=== PATIENT | female | born 1940 | race Caucasian/White ===

== ENCOUNTER 2018-05-18 12:06 | Day surgery (SDC) | payer MEDICARE, BC ==
[~2018-05-18] VITALS: Ht 165.1 cm; Wt 89.1 kg
--- NOTE | ~2018-05-18 | OP ---
PATIENT NAME: GARRISON CASTILLO MEDICAL RECORD: [id number] :44 LOCATION:[facility] ADMISSION DATE: SURGEON: DAVID GOODWIN DO DATE OF OPERATION: 05/18/2018 PROCEDURE: Colonoscopy with polypectomy and biopsies. INDICATIONS FOR PROCEDURE: Change in bowel habits, generalized abdominal tenderness, diarrhea and constipation. SCOPE: Olympus video pediatric colonoscope. MEDICATIONS: Propofol 310 mg IV per anesthesia. WITHDRAWAL TIME: 11 minutes. ESTIMATED BLOOD LOSS: Minimal. COMPLICATIONS: None. FINDINGS: Informed consent was given. The patient was made comfortable with the above medication. After reaching an adequate level of sedation by slow IV push, the patient was placed on her left side. A digital rectal examination was performed and was normal. The endoscope was then advanced under direct visualization through the rectum to the cecum, confirmed by the presence of the appendiceal orifice and ileocecal valve. There were 2 polyps visualized on today's examination. The first was located in the cecum. It was a benign appearing sessile polyp, which measured approximately 2 mm in diameter. It was removed using hot forceps. In the distal ascending colon, a second polyp was visualized. It was benign appearing sessile polyp, which measured approximately 4 mm in diameter. It was removed using hot forceps. There was evidence of mild diverticulosis involving the sigmoid colon. Retroflexion was performed in the rectum with a normal appearing rectal wall. The endoscope was withdrawn from the patient. The patient tolerated the procedure well and there were no complications. IMPRESSION: 1. Two polyps as described above, removed using hot forceps. 2. Sigmoid colon diverticulosis without diverticulitis. 3. Otherwise, normal colonoscopy. Multiple random cold forceps biopsies were taken to submit for histopathology and to rule out the presence of microscopic colitis. PLAN AND RECOMMENDATIONS: 1. Discharge home when recovery parameters are met. 2. Follow up biopsy specimen results. 3. High fiber diet. 4. Supplement diet with Metamucil 1 tablespoon daily or an equivalent, psyllium husk fiber. 5. Consider adding 1/4 dose of MiraLax as needed for constipation. 6. No further colonoscopies are necessary based on the patient's age, unless symptoms warrant evaluation. TRANSINT:[id number] Voice Confirmation ID: [id number] DOCUMENT ID: [id number] OPERATIVE REPORT [id number] GARRISON CASTILLO DAVID GOODWIN DO at 0800 CC: [id number] DICTATION DATE: 05/18/18 1514 MANAGER RISK: 05/19/18 0033 [facility] 05/18/18 [id number] [place] [address]
[2018-05-18 12:41] LABS: BASOPHILS 0.2 % (0-2); HEMATOCRIT 46.1 % (36.0-48.0); IMMATURE GRANULOCYTES 0.4 % (0-5); MCH 32.1 pg (26.0-34.0); MCHC 32.5 g/dL (31.0-37.0); MCV 98.5 fL (80.0-100.0); MEAN PLATELET VOLUME 8.9 fL (7.4-10.4); MONOCYTES 8.5 % (2-11); NEUTROPHILS 60.9 % (40-80); PLATELET COUNT 257 10x3/uL (130-400); RBC 4.68 10x6/uL (4.00-5.40); RDW 13.1 % (11.5-14.5); WBC 8.4 10x3/uL (4.8-10.8)
[2018-05-18 12:49] LABS: CALC OSMOLALITY 281 mosm/kg (275-300); CALCIUM 9.4 mg/dL (8.5-10.1); CARBON DIOXIDE 29.9 mmol/L (21.0-32.0); CHLORIDE - SERUM 103 mmol/L (98-107); CREATININE - SERUM 0.7 mg/dL (0.6-1.3); GLUCOSE 105 mg/dL (74-106); SODIUM 142 mmol/L (136-145); UREA NITROGEN 9 mg/dL (7-18); eGFR NON AFRICAN AMERICAN 86 mL/min (90-120)
[2018-05-18 12:50] LABS: POTASSIUM - SERUM 4.7 mmol/L (3.5-5.1)
[2018-05-18 13:08] LABS: APTT 24.6 SECONDS (22.8-39.4)
[2018-05-18 13:11] LABS: INR 1.06 (0.85-1.17); PROTIME 13.3 SECONDS (11.6-15.0)
[2018-05-18] MEDS ORDERED: PLAVIX75 MG PO (13:11)
[2018-05-18] MEDS ORDERED: CROMOLYN S20 MG/2 ML NEB ×2 (13:12→13:22)
[2018-05-18] MEDS ORDERED: HYDROCODON-ACE1 EAC7 PO (13:13)
[2018-05-18] MEDS ORDERED: BAYER CHEWABLE81 MG PO (13:16)
[2018-05-18] MEDS ORDERED: RABEPRAZOLE (13:18)
[2018-05-18] MEDS ORDERED: FEXOFENADINE HC60 MG PO (13:19)
[2018-05-18] MEDS ORDERED: VITAMIN C250 MG PO (13:19)
[2018-05-18] MEDS ORDERED: PROBIOTIC250 MG PO (13:19)
[2018-05-18] MEDS ORDERED: TUMS X-STR300 MG PO (13:20)
[2018-05-18] MEDS ORDERED: VITAMIN D3400 UNI1 PO (13:20)
[2018-05-18] MEDS ORDERED: NUTRISOURCE FI1 EACH PO (13:21)
[2018-05-18] MEDS ORDERED: FLINTSTONES WIT18 MG PO (13:21)
[2018-05-18] MEDS ORDERED: PROBENECID500 MG PO (13:22)
[2018-05-18 13:38] VITALS: Ht 165.1 cm; Wt 89.1 kg
== END 2018-05-18 16:35 | disposition home or self-care (01) ==
LOC: D.OPS 12:06 → EDBD 12:06 → D.OPS 13:45
PROVIDERS: Anesthesiology
DX: D12.2 Benign neoplasm of ascending colon (principal); D12.0 Benign neoplasm of cecum; K57.30 Diverticulosis of large intestine without perforation or abscess without bleeding; Z01.812 Encounter for preprocedural laboratory examination

== ENCOUNTER 2018-05-22 13:11 | Emergency (ER) | payer MEDICARE, BC ==
[~2018-05-22] VITALS: Ht 165.1 cm; Wt 89.1 kg
[~2018-05-22 13:11] MED LIST: BAYER CHEWABLE81 MG PO; CROMOLYN S20 MG/2 ML NEB; FEXOFENADINE HC60 MG PO; FLINTSTONES WIT18 MG PO; HYDROCODON-ACE1 EAC7 PO; NUTRISOURCE FI1 EACH PO; PLAVIX75 MG PO; PROBENECID500 MG PO; PROBIOTIC250 MG PO; RABEPRAZOLE; TUMS X-STR300 MG PO; VITAMIN C250 MG PO; VITAMIN D3400 UNI1 PO
[2018-05-22 13:19] VITALS: Ht 165.1 cm; Wt 89.1 kg
[2018-05-22 13:36] VITALS: BP 188/081
[2018-05-22 14:35] LABS: BASOPHILS 0.3 % (0-2); HEMATOCRIT 44.7 % (36.0-48.0); HEMOGLOBIN 14.4 g/dL (12-16); IMMATURE GRANULOCYTES 0.3 % (0-5); LYMPHOCYTES 37.2 % (15-50); MCH 31.7 pg (26.0-34.0); MCHC 32.2 g/dL (31.0-37.0); MCV 98.5 fL (80.0-100.0); MEAN PLATELET VOLUME 8.8 fL (7.4-10.4); MONOCYTES 8.6 % (2-11); NEUTROPHILS 51.6 % (40-80); PLATELET COUNT 268 10x3/uL (130-400); RBC 4.54 10x6/uL (4.00-5.40); RDW 13.1 % (11.5-14.5); WBC 7.3 10x3/uL (4.8-10.8)
[2018-05-22 14:54] LABS: ALBUMIN 3.7 g/dL (3.4-5.0); ALKALINE PHOSPHATASE 71 U/L (46-116); ALT (SGPT) 25 U/L (10-68); BILIRUBIN - TOTAL 0.34 mg/dL (0.2-1.3); CALC OSMOLALITY 277 mosm/kg (275-300); CALCIUM 9.3 mg/dL (8.5-10.1); CHLORIDE - SERUM 104 mmol/L (98-107); CREATININE - SERUM 0.7 mg/dL (0.6-1.3); GLUCOSE 95 mg/dL (74-106); POTASSIUM - SERUM 3.8 mmol/L (3.5-5.1); PROTEIN - SERUM 7.6 g/dL (6.4-8.2); SODIUM 140 mmol/L (136-145); UREA NITROGEN 10 mg/dL (7-18); eGFR NON AFRICAN AMERICAN 86 mL/min (90-120)
[2018-05-22 15:06] LABS: APPEARANCE CLEAR (CLEAR); BILIRUBIN NEGATIVE (NEGATIVE); COLOR YELLOW (YELLOW); GLUCOSE NEGATIVE (NEGATIVE); KETONE NEGATIVE (NEGATIVE); NITRITE NEGATIVE (NEGATIVE); PROTEIN NEGATIVE (NEGATIVE); UROBILINOGEN NORMAL (NORMAL)
[2018-05-22 17:54] LABS: T4 THYROXIN - FREE 1.11 ng/dL (0.76-1.46); THYROID STIMULATING HORMONE 0.63 uIU/mL (0.36-3.74)
== END 2018-05-22 17:31 | disposition home or self-care (01) ==
LOC: EDBD 13:11 → D.ER 13:11
PROVIDERS: Emergency Medicine
DX: R68.83 Chills (without fever) (principal); R14.0 Abdominal distension (gaseous)

== ENCOUNTER 2018-06-01 10:06 | Day surgery (SDC) | payer MEDICARE, BC ==
[~2018-06-01] VITALS: Ht 165.1 cm; Wt 89.1 kg
--- NOTE | ~2018-06-01 | OP ---
PATIENT NAME: GARRISON CASTILLO MEDICAL RECORD: [id number] :44 LOCATION:[facility] ADMISSION DATE: SURGEON: DAVID GOODWIN DO DATE OF OPERATION: 06/01/2018 PROCEDURE: EGD with biopsies. INDICATIONS FOR PROCEDURE: GERD and dysphagia. SCOPE: Olympus video gastroscope. MEDICATIONS: Propofol 160 mg IV per anesthesia. ESTIMATED BLOOD LOSS: Minimal. COMPLICATIONS: None. FINDINGS: Informed consent was given. The patient was made comfortable with the above medication. After reaching an adequate level of sedation by slow IV push, the patient was placed on her left side. The endoscope was advanced under direct visualization through the mouth to the second portion of the duodenum. The upper, middle, and lower thirds of the esophagus appeared normal without strictures, ulcerations, rings, or other abnormalities. At the GE junction, there was mild evidence of LA class A reflux-induced esophagitis. Cold forcep biopsies were taken from the GE junction. The endoscope was advanced beyond the GE junction into the stomach and retroflexed to view the cardia, where a small sliding hiatal hernia was present. Throughout the fundus and body of the stomach, there were multiple benign-appearing fundic gland polyps, which ranged in size from 3 mm to a centimeter. A cold forcep biopsy was taken of one of the larger polyps to submit for histopathology. The endoscope was advanced beyond the body of the stomach into the antrum and prepyloric region, which appeared normal. Random cold forcep biopsies were taken to submit for histopathology to rule out the presence of H. pylori. The endoscope was advanced beyond the pylorus into the duodenum. The duodenum appeared normal down to the second portion. The endoscope was then withdrawn from the patient. The patient tolerated the procedure well and there were no complications. IMPRESSION: 1. LA class A reflux-induced esophagitis. 2. Small sliding hiatal hernia. 3. Multiple benign appearing fundic gland polyps. Biopsies pending. PLAN AND RECOMMENDATIONS: 1. Discharge home when recovery parameters are met. 2. Follow up biopsy specimen results. 3. GERD diet and reflux precautions. 4. Continue current medications. 5. We will discuss further workup of the GERD and dysphagia with the patient. Regarding medications, I am hesitant to change her medication from her Aciphex due to her extensive list of allergies. I would consider a barium esophagram regarding her ongoing dysphagia. This may also lend some support of reflux in relation to her small hiatal hernia. 6. Could consider surgical referral for antireflux procedure if severe reflux is still occurring while on therapy. OPERATIVE REPORT [id number] GARRISON CASTILLO ANN TRANSINT:[id number] Voice Confirmation ID: [id number] DOCUMENT ID: [id number] DAVID GOODWIN DO at 1554 CC: [id number] DICTATION DATE: 06/01/18 1334 [employer] MECHANIC: 06/01/18 1511 [facility] 06/01/18 [facility] [address] [place] [address]
[2018-06-01 10:43] LABS: APTT 27.3 SECONDS (22.8-39.4); PROTIME 12.7 SECONDS (11.6-15.0)
[2018-06-01 10:44] LABS: ANION GAP 12.5 mmol/L (8-16); CALCIUM 9.7 mg/dL (8.5-10.1); CARBON DIOXIDE 31.8 mmol/L (21.0-32.0); CREATININE - SERUM 0.9 mg/dL (0.6-1.3); POTASSIUM - SERUM 4.3 mmol/L (3.5-5.1)
[2018-06-01 11:01] LABS: HEMATOCRIT 45.1 % (36.0-48.0); HEMOGLOBIN 14.7 g/dL (12-16); MCH 32.2 pg (26.0-34.0); MCHC 32.6 g/dL (31.0-37.0); MCV 98.7 fL (80.0-100.0); MEAN PLATELET VOLUME 9.1 fL (7.4-10.4); RBC 4.57 10x6/uL (4.00-5.40); RDW 13.2 % (11.5-14.5); WBC 7.9 10x3/uL (4.8-10.8)
[2018-06-01 12:13] VITALS: BP 144/72; Ht 165.1 cm; Wt 89.1 kg
== END 2018-06-01 14:36 | disposition home or self-care (01) ==
LOC: D.OPS 10:06 → EDBD 12:00 → D.OPS 12:00
PROVIDERS: Anesthesiology
DX: K21.0 Gastro-esophageal reflux disease with esophagitis (principal); K44.9 Diaphragmatic hernia without obstruction or gangrene; K31.7 Polyp of stomach and duodenum; R13.10 Dysphagia, unspecified; Z01.812 Encounter for preprocedural laboratory examination